=== PATIENT | male | born 1985 | race Two or more races ===

== ENCOUNTER 2017-06-02 16:30 | Emergency (ER) | payer SELFPAY ==
[~2017-06-02] VITALS: Ht 167.6 cm; Wt 79.4 kg
[2017-06-02 17:22] VITALS: BP 118/74
--- NOTE | 2017-06-02 17:43 | PHYS DOC ---
Past Medical History Past Medical History: No Pertinent History Past Surgical History: No Surgical History Alcohol Use: None Drug Use: None Adult General Chief Complaint Chief Complaint: EARACHE/EAR PAIN HPI HPI Patient is a 32 year old male with no significant medical history who presents today complaining of blood coming from the left ear that he noted yesterday. Patient denies any trauma. Denies any fever coughing or congestion. Denies any sneezing. Denies any swimming. Denies any pain to the left ear. He states he has some slight decrease in hearing to the left ear. Review of Systems Review of Systems Constitutional: Denies fever or chills [] Eyes: Denies change in visual acuity, redness, or eye pain [] HENT: blood coming from the left ear Respiratory: Denies cough or shortness of breath [] Cardiovascular: No additional information not addressed in HPI [] GI: Denies abdominal pain, nausea, vomiting, bloody stools or diarrhea [] : Denies dysuria or hematuria [] Musculoskeletal: Denies back pain or joint pain [] Integument: Denies rash or skin lesions [] Neurologic: Denies headache, focal weakness or sensory changes [] Endocrine: Denies polyuria or polydipsia [] Physical Exam Physical Exam Constitutional: Well developed, well nourished, no acute distress, non-toxic appearance. [] HENT: Normocephalic, atraumatic, bilateral external ears normal, oropharynx moist, no oral exudates, nose normal. [] Left TM has raptured. There is small amount of dry blood in the ear canal. There is no infection to the ear. Eyes: PERRLA, EOMI, conjunctiva normal, no discharge. [] Neck: Normal range of motion, no tenderness, supple, no stridor. [] Cardiovascular:Heart rate regular rhythm, no murmur [] Lungs & Thorax: Bilateral breath sounds clear to auscultation [] Abdomen: Bowel sounds normal, soft, no tenderness, no masses, no pulsatile masses. [] Skin: Warm, dry, no erythema, no rash. [] Back: No tenderness, no CVA tenderness. [] Extremities: No tenderness, no cyanosis, no clubbing, ROM intact, no edema. [] Neurologic: Alert and oriented X 3, normal motor function, normal sensory function, no focal deficits noted. [] Psychologic: Affect normal, judgement normal, mood normal. [] Current Patient Data Vital Signs Vital Signs Date Time Temp Pulse Resp B/P (MAP) Pulse Ox O2 Delivery O2 Flow Rate FiO2 06/02/17 17:22 98.3 95 18 97 Room Air 98.3 EKG EKG [] Radiology/Procedures Radiology/Procedures [] Course & Med Decision Making Course & Med Decision Making Pertinent Labs and Imaging studies reviewed. (See chart for details) Patient has a ruptured tympanic membrane to the left with no known trauma no infection to the ear. He was discharged with instructions to take Tylenol/ Motrin for pain. Follow-up with ENT. Bud Disclaimer Dragon Disclaimer This electronic medical record was generated, in whole or in part, using a voice recognition dictation system. Departure Departure Impression: Primary Impression: Tympanic membrane rupture Disposition: 01 HOME, SELF-CARE Condition: STABLE Referrals: NO PCP (PCP) Follow up with ENT by calling the office tomorrow for a follow up appointment Patient Instructions: Tympanic Membrane Perforation-SportsMed Additional Instructions: You were seen for a ruptured left eardrum. Typically it heals on its own. Take Tylenol/Motrin for pain. Follow up with an ENT doctor at [facility] as needed. Do not put anything in the ear do not immerse the ear in water. Problem Qualifiers Primary Impression: Tympanic membrane rupture Laterality: left Qualified Codes: H72.92 - Unspecified perforation of tympanic membrane, left ear KRISSY CORTEZ APRN Jun 02, 2017 17:43
== END 2017-06-02 17:49 | disposition home or self-care (01) ==
LOC: ER 16:30
DX: H72.92 Unspecified perforation of tympanic membrane, left ear (principal)
CPT/HCPCS: 99281

== ENCOUNTER 2020-05-14 18:52 | Emergency (ER) | payer OTHER ==
[~2020-05-14] VITALS: Ht 160 cm; Wt 81.8 kg
[2020-05-14 19:50] VITALS: BP 113/73
[2020-05-14] MEDS ORDERED: IBUPROFEN 200 MG TABLET. PO ONE (20:15)
[2020-05-14] MEDS ORDERED: DIPH,PERTUSS(ACELL),TET VAC/PF 0.5 ML SYRINGE. VAX IM ONE (20:15)
--- NOTE | 2020-05-14 20:28 | RAD ---
Exam performed: Bilateral hand 3 views. Indication: Bilateral hand pain. Date of Service: 05/14/2020 Comparison: None available Discussion: PA, oblique lateral radiographs of the bilateral hands reveal the osseous structures to be intact and well aligned. The joint spaces are well-preserved. The articular margins are smooth. There is mild soft tissue swelling, no definite foreign bodies detected. Impression: No acute radiographic abnormality seen in bilateral hands. Electronically signed by: Mera Alex MD (05/14/2020 8:25 PM) [facility]
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
[2020-05-14] MEDS ORDERED: CYCL10TA2 PO (21:12)
[2020-05-14] MEDS ORDERED: IBUP-1007 PO (21:12)
== END 2020-05-14 21:15 | disposition home or self-care (01) ==
LOC: ER 18:52
DX: S60.011A Contusion of right thumb without damage to nail, initial encounter (principal); M79.642 Pain in left hand; V49.9XXA Car occupant (driver) (passenger) injured in unspecified traffic accident, initial encounter; Y93.89 Activity, other specified; Y92.488 Other paved roadways as the place of occurrence of the external cause; Y99.8 Other external cause status
CPT/HCPCS: 73130; 90471; 90715; 99283; 99284